=== PATIENT | female | born 1985 | race American Indian/Alaskan Native ===

== ENCOUNTER 2019-04-03 19:24 | Emergency (ER) | payer OTHER ==
--- NOTE | 2019-04-03 20:11 | Emergency Department Report ---
Blank Doc - Documentation Documentation: This is a 33-year-old female that presents with bilateral arms redness pain and blisters from poison KASIA. This initial assessment/diagnostic orders/clinical plan/treatment(s) is/are subject to change based on patient's health status, clinical progression and re- assessment by fellow clinical providers in the ED. Further treatment and workup at subsequent clinical providers discretion. Patient/guardians urged not to elope from the ED as their condition may be serious if not clinically assessed and managed. Initial orders include: 1- Patient sent to [facility] for further evaluation and treatment
[2019-04-03] MEDS ORDERED: SOLU-Medrol IM ONE (20:56)
[2019-04-03] MEDS ORDERED: PEPCID PO ONE (20:56)
--- NOTE | 2019-04-03 22:30 | Emergency Department Report ---
ED Allergic Reaction HPI - General Chief complaint: Allergic Reaction Stated complaint: OUTBREAK FROM POISON KASIA Time Seen by Provider: 04/03/19 20:10 Source: patient Mode of arrival: Ambulatory Limitations: No Limitations - History of Present Illness Initial Comments: Patient is a 33-year-old -[place] female with no past medical history presents with a complaint of acute onset persistent itchy erythematous macular papular urticarial rashes with blisters for the last 3 days after being exposed to Poison Kasia. Patient states that she has been using Calumine lotions, Hydrocortisone creams and taking benadryl with no relief. Patient denies dyspnea, nausea, vomiting, diarrhea, abdominal pain, fever, chills, headache, swollen lips, swollen tongue, dysphagia, dysphonia, cough or wheezing, swollen eyes or face and headache. MD Complaint: allergic reaction, hives, other (blisters) -: Sudden, days(s) (3) Exposure: plant (plants and bushes) Symptoms: rash, itching. denies: facial swelling, lip swelling, difficulty swallowing, difficulty breathing, orolingual swelling, hoarseness, syncopy, nausea, vomiting, other Severity: severe Treatment Prior to Arrival: benadryl Previous Allergy History: none - Related Data Previous Rx's Medication Instructions Recorded Last Taken Type Prednisone [predniSONE 10 mg 10 mg PO .TAPER #1 tab.ds.pk 04/03/19 Unknown Rx (6-Day Pack, 21 Tabs)] Ranitidine HCl [Zantac] 150 mg PO Q12H #30 tablet 04/03/19 Unknown Rx Allergies Allergy/AdvReac Type Severity Reaction Status Date / Time No Known Allergies Allergy Verified 04/03/19 19:27 ED Review of Systems ROS: Stated complaint: OUTBREAK FROM POISON KASIA Other details as noted in HPI Comment: All other systems reviewed and negative Constitutional: no symptoms reported, see HPI. denies: chills, diaphoresis, fever, malaise, weakness Eyes: as per HPI. denies: eye pain, eye discharge, vision change ENT: as per HPI. denies: ear pain, throat pain, dental pain, hearing loss, epistaxis, congestion Respiratory: no symptoms reported, see HPI Cardiovascular: as per HPI. denies: chest pain, palpitations, edema, syncope, paroxysmal nocturnal dyspnea Endocrine: no symptoms reported, see HPI. denies: intolerance to cold, increased hunger, increased thirst, increased urine, unexplained weight loss Gastrointestinal: as per HPI. denies: abdominal pain, nausea, vomiting, diarrhea, constipation, melena Genitourinary: as per HPI. denies: urgency, dysuria, frequency, hematuria, discharge Musculoskeletal: as per HPI. denies: back pain, joint swelling, arthralgia, myalgia, other Skin: as per HPI, rash (diffuse maculopapular erythematous blistered urticarial rashes), change in color (erythematous), pruritus (diffusely) Neurological: as per HPI. denies: headache, weakness, numbness, paresthesias, confusion, abnormal gait, vertigo, other Psychiatric: as per HPI Hematological/Lymphatic: as per HPI ED Past Medical Hx - Past Medical History Previous Medical History?: No - Surgical History Additional Surgical History: ganglion cyst removed - Social History Smoking Status: Light Tobacco Smoker Substance Use Type: Alcohol - Medications Home Medications: Home Medications Medication Instructions Recorded Confirmed Last Taken Type Prednisone [predniSONE 10 mg 10 mg PO .TAPER #1 tab.ds.pk 04/03/19 Unknown Rx (6-Day Pack, 21 Tabs)] Ranitidine HCl [Zantac] 150 mg PO Q12H #30 tablet 04/03/19 Unknown Rx ED Physical Exam - General Limitations: No Limitations General appearance: alert, in no apparent distress - Head Head exam: Present: atraumatic, normocephalic, normal inspection - Eye Eye exam: Present: normal appearance, PERRL, EOMI. Absent: scleral icterus, conjunctival injection, nystagmus, periorbital swelling, periorbital tenderness Pupils: Present: normal accommodation - ENT ENT exam: Present: normal exam, normal orophraynx, mucous membranes moist, TM's normal bilaterally, normal external ear exam - Neck Neck exam: Present: normal inspection, full ROM - Respiratory Respiratory exam: Present: normal lung sounds bilaterally. Absent: respiratory distress, wheezes, rales, rhonchi, stridor, chest wall tenderness, accessory muscle use, decreased breath sounds, prolonged expiratory - Cardiovascular Cardiovascular Exam: Present: regular rate, normal rhythm, normal heart sounds - GI/Abdominal GI/Abdominal exam: Present: soft, normal bowel sounds. Absent: distended, tenderness, diminished bowel sounds, hyperactive bowel sounds, organomegaly - Rectal Rectal exam: Present: deferred - Back Exam Back exam: Present: normal inspection, full ROM. Absent: tenderness, CVA tenderness (R), CVA tenderness (L), muscle spasm, paraspinal tenderness - Neurological Exam Neurological exam: Present: alert, oriented X3, CN II-XII intact, normal gait, reflexes normal - Psychiatric Psychiatric exam: Present: normal affect - Skin Skin exam: Present: warm, dry, intact, rash (Diffuse erythematous, blistered maculopapular urticarial rashes ), erythema ED Course Vital Signs 04/03/19 04/03/19 20:09 23:18 Temperature 98.6 F Pulse Rate 97 H 86 Respiratory 18 17 Rate O2 Sat by Pulse 100 99 Oximetry ED Medical Decision Making - Differential Diagnosis acute allergic reaction, Irritant dermatitis, urticaria Critical care attestation.: If time is entered above; I have spent that time in minutes in the direct care of this critically ill patient, excluding procedure time. ED Disposition Clinical Impression: Acute urticaria, Poison kasia dermatitis Acute allergic reaction Qualifiers: Encounter type: initial encounter Qualified Code(s): T78.40XA - Allergy, unspecified, initial encounter Disposition: TO HOME OR SELFCARE Is pt being admited?: No Does the pt Need Aspirin: No Condition: Stable Instructions: Urticaria (ED), Poison Kasia (ED), Allergies (ED) Additional Instructions: Take medications include, drink plenty of fluids and follow up with your primary care physician in 5-7 days for reevaluation. Return to the ED immediately if symptoms get worse. Prescriptions: Prednisone [predniSONE 10 mg (6-Day Pack, 21 Tabs)] 10 mg PO .TAPER #1 tab.ds.pk Ranitidine HCl [Zantac] 150 mg PO Q12H #30 tablet Referrals: EJ LEMUS MD [Primary Care Provider] - 3-5 Days Forms: Work/School Release Form(ED) Time of Disposition: 22:30 Print Language: EGYPTIAN
== END 2019-04-03 23:18 | disposition home or self-care (01) ==
LOC: ED 19:24
DX: T78.40XA Allergy, unspecified, initial encounter (principal); L23.7 Allergic contact dermatitis due to plants, except food; L85.3 Xerosis cutis; F17.200 Nicotine dependence, unspecified, uncomplicated; X58.XXXA Exposure to other specified factors, initial encounter
CPT/HCPCS: 96372; 99282; J2930